=== PATIENT | female | born 1950 | race Caucasian/White ===

== ENCOUNTER 2018-08-10 14:31 | Inpatient (IN) ==
--- NOTE | 2018-08-10 15:19 | EKG Report ---
Test Performed on : 08/10/2018 2:52:06 PM Test Reason : WEAKNESS Blood Pressure : / mmHG Vent. Rate : 060 BPM Atrial Rate : 060 BPM P-R Int : 272 ms QRS Dur : 186 ms QT Int : 494 ms P-R-T Axes : 066 -47 082 degrees QTc Int : 494 ms Sinus rhythm. with 1st degree AV block. Right bundle branch block Left anterior fascicular block Bifascicular block Left ventricular hypertrophy with repolarization abnormality Abnormal ECG When compared with ECG of 31-DEC-2017 06:57, MO interval has increased QRS duration has increased Unconfirmed Result
[2018-08-10 15:53] LABS: BASO# 0.06 X1000 (0.0-0.2); BASO% 0.8 % (0.0-0.8); HEMATOCRIT 39.1 % (37.0-47.0); HEMOGLOBIN 12.6 g/dL (12.0-16.0); LYMPH# 1.12 X1000 (1.2-3.4); LYMPH% 14.2 % (20.5-51.1); MCH 27.8 PG (27-31); MCHC 32.2 g/dL (33-37); MCV 86.1 FL (81-99); MONO% 10.1 % (1.7-9.3); MPV 12.7 FL (7.4-10.4); NEUT# 5.93 X1000 (1.4-6.5); NEUT% 74.9 % (42.2-75.2); PLT 99 X1000 (130-400); RBC 4.54 XMIL (4.2-5.4); RDW 18.9 % (11.5-14.5); WBC 7.91 X1000 (4.8-10.8)
[2018-08-10] MEDS ORDERED: LASIX IV ONE ×2 (16:04→18:06)
[2018-08-10 16:15] LABS: ALB/GLOB RATIO 1.4; ALBUMIN 3.7 g/dL (3.5-5.0); CALCIUM 10.1 mg/dL (8.8-10.2); CREATININE 4.6 mg/dL (0.5-0.9); POTASSIUM 3.5 mmol/L (3.5-5.1); TOTAL BILIRUBIN 0.96 mg/dL (0.20-1.00); TOTAL PROTEIN 6.4 g/dL (6.3-8.3)
[2018-08-10 16:50] LABS: URINE SOURCE CATH
[2018-08-10 17:02] LABS: BILIRUBIN URINE NEGATIVE (NEGATIVE); BLOOD URINE NEGATIVE (NEGATIVE); COLOR YELLOW; GLUCOSE URINE NEGATIVE (NEGATIVE); KETONE URINE NEGATIVE (NEGATIVE); LEUKOCYTES URINE NEGATIVE (NEGATIVE); NITRITE URINE NEGATIVE (NEGATIVE); PROTEIN URINE TRACE mg/dL (NEGATIVE); SP GRAVITY URINE 1.007; TURBIDITY URINE CLEAR (CLEAR); UROBILINOGEN URINE NORMAL (NORMAL)
[2018-08-10 17:03] LABS: UR EPITHELIAL CELLS <10 /HPF (<10); URINE BACTERIA NEGATIVE /HPF; URINE RBC <10 /HPF (<10); URINE WBC <10 /HPF (<10)
--- NOTE | 2018-08-10 17:08 | Diag Imaging Result Doc PS360 ---
EXAM: CHEST-2 VIEWS HISTORY: CHF TECHNIQUE: Chest two views COMPARISON: 01/01/2018 FINDINGS: The lungs are hyperexpanded. The heart is enlarged. There is a small to moderate-sized left pleural effusion with a tiny right pleural effusion. There is basilar atelectasis. Minimal central vascular prominence. IMPRESSION: 1.Emphysema 2.Cardiomegaly with small pleural effusions and basilar atelectasis Electronically signed by Desean Kimble 08/10/2018 5:06 PM
--- NOTE | 2018-08-10 18:13 | PROVIDER DOCUMENTATION ---
This chart was entered by Kamilah Tierney Scribe, acting as scribe for Nico Church MD. HPI-General Adult - General Chief Complaint: General Adult Stated Complaint: FLUID BUILDUP Time Seen by Provider: 08/10/18 14:49 Source: patient, family (pt ) Allergies/Adverse Reactions: Patient Allergies Allergy/AdvReac Type Severity Reaction Status Date / Time No Known Allergies Allergy Verified 12/29/17 19:59 Home Medications: Home Medication List Medication Instructions Recorded Confirmed Last Taken Type Aspirin [Lo-Dose Aspirin EC] 81 mg PO DAILY 12/29/17 03/30/18 12/29/17 History Hydralazine [Apresoline] 50 mg PO BID 12/29/17 03/30/18 03/30/18 History Hydroxychloroquine Sulfate 200 mg PO BID 12/29/17 03/30/18 12/29/17 16:00 History [Plaquenil] Temazepam 15 mg PO HS 12/29/17 03/30/18 1 Day Ago History ~03/29/18 Cholecalciferol (Vitamin D3) 1,000 units PO DAILY 03/30/18 03/30/18 03/30/18 History [Vitamin D3] Esomeprazole Magnesium [Nexium 1 cap PO DAILY 03/30/18 03/30/18 Unknown History 24Hr] Fluconazole [Diflucan] 1 tab PO DAILY 03/30/18 03/30/18 03/30/18 History - History of Present Illness -Gen Adult Nature of Presenting Problems: 68 yof hx of renal disease and htn presents with cc of no appetite and BLE swelling x 3 weeks. Pt at bedside reports pt got sick 3 weeks ago with a virus and had poor appetite and pt now has not regained it back but also started having BLE edema. States is on 40mg lasix daily. Denies cough, sob,n,v, d. Review of Systems - Adult - REVIEW OF SYSTEMS - ADULT Constitutional: reports: weight loss (1 year ago weighed 150lbs, today weighs 117lbs.). denies: chills, fever, fatique Eyes: reports: no symptoms reported Ears, Nose, Mouth & Throat: denies: ear pain, sinus problem, throat pain Cardiovascular: reports: edema. denies: irregular heart rate, orthopnea, syncope Respiratory: denies: cough, shortness of breath, wheezing Gastrointestinal: reports: poor appetite. denies: abdominal pain, hematemesis, diarrhea, difficulty swallowing, frequent heartburn, nausea, rectal bleeding, vomiting Genitourinary: reports: no symptoms reported Musculoskeletal: reports: other (BLE edema). denies: frequent leg cramps, joint pain, joint swelling, muscle aches Integumentary: denies: hives, mole changes, nail changes Neurological: reports: no symptoms reported Psychiatric: reports: no symptoms reported Endocrine: reports: no symptoms reported Hematologic/Lymphatic: reports: no symptoms reported Allergic/Immunologic: reports: no symptoms reported All Other Systems: Reviewed and Negative Past History - Adult - PAST MEDICAL HISTORY-ADULT Review of Records: reports: Nursing Assessment Review, Medications Reviewed Major Childhood Illnesses: reports: denies history Cardiovascular: reports: HTN Respiratory: reports: denies history Gastrointestinal: reports: GERD Obstetrical/Gynecological: reports: denies history Genitourinary: reports: kidney disease Musculoskeletal: reports: arthritis (Rheumatoid) Neurological: reports: denies history Psychiatric: reports: denies history Endocrine/Immune: reports: denies history Other Conditions: reports: denies history - IMMUNIZATION STATUS Childhood Immunizations: See Nurse Assessment Flu Vaccine: See Nurse Assessment - FAMILY HISTORY Family History: reviewed, not pertinent - SOCIAL HISTORY Smoking: non-smoker Substance Use: none/never Physical Exam-General - PHYSICAL EXAM-ADULT Initial Vital Signs Reviewed: Yes - CONSTITUTIONAL General Appearance: alert, no apparent distress. negative: appears well - EYES Eyes: PERRL/EOMI - HEAD, EARS, NOSE, MOUTH & THROAT HENMT: moist mucous membranes - NECK Neck: non-tender, full range of motion, supple, normal inspection - RESPIRATORY Respiratory: chest non-tender, lungs clear, normal breath sounds, no pleuratic chest pain, no respiratory distress, no accessory muscle use - CARDIOVASCULAR Cardiovascular: regular rate, rhythm - GASTROINTESTINAL (ABDOMEN) Abdominal Exam: non tender, soft, no organomegaly - LYMPHATIC Lymphatic: no adenopathy - MUSCULOSKELETAL Back Exam: normal inspection, no CVA tenderness, no vertebral tenderness Extremity: normal range of motion, non-tender, pedal edema (BLE 3+ edema to knees) - SKIN Integumentary: normal color, normal turgor, warm/dry - NEUROLOGIC Neurologic: grossly normal - PSYCHIATRIC Psych/Mental Status: normal mood/affect, normal thought content, normal thought process, oriented x 3 Progress - PLAN OF CARE/RESULTS Progress/Plan/Lab Results: Vital Signs - 8 hr 08/10/18 14:43 Temperature 97.6 F Pulse Rate 61 Respiratory Rate 18 Blood Pressure 93/76 O2 Sat by Pulse Oximetry 100 Orders Category Date Time Status CBC WITH ELECTRONIC DIFF [HEME] Stat Lab 08/10/18 14:45 Uncollected CMP [COMPREHENSIVE METABOLIC PANEL] [CHEM] Stat Lab 08/10/18 14:45 Uncollected EKG [EKG] Stat Ther 08/10/18 14:45 Ordered A/P: pt admitted for HATTIE and fluid overload, pleural effusion, vitals stable, Dr Camacho will se in am. Result Diagrams: 08/10/18 15:28 08/10/18 15:28 - EKG 1 Time of EKG reading by physician:: 14:52 EKG Read and Signed by:: Nico Church EKG Interpretation (*Must complete 3 of following elements*): Abnormal Rate: 60 Rhythm: sinus with 1st deg block [place]: normal QRS: RBB, LVH (with repolarization abnormality), other (LAFB) - CONSULTS/PCP/HOSPITALIST Notification #1 *Consult/PCP/Hospitalist*: Dr Camacho Time Discussed: 18:00 (will see in hospital) Consult Disposition: Admit #2 Consult: jose MANUEL for Dr rodas Time Discussed: 18:11 Consult Disposition: Admit Departure - Departure Date of Disposition Decision: 08/10/18 Time of Disposition Decision: 18:12 DIAGNOSIS: HATITE (acute kidney injury), Edema extremities Disposition: ADMITTED INPATIENT 09 Certified Medical Emergency: Emergent Condition: Stable Additional Freetext Instructions: We have examined and treated you today on an emergency basis only. This was not a substitute for, or an effort to provide, complete medical care. In most cases , you must let your doctor check you again. Tell your doctor about any new or lasting problems. We cannot recognize and treat all injuries or illnesses in one Emergency Department visit. If you had special tests, such as X-rays or CT scans, will be reviewed by radiologist and will call you if there are any new suggestions Follow up with primary care provider in 1 to 2 days if no improvement. If you do not have a primary care provider, you need to choose one as soon as possible. Take medicines as prescribed. Monitor for any side effects or adverse events from medications. If any side effect, adverse event or rash develops, or if you suspect any other adverse reaction to the medication, then discontinue the medication immediately and contact clinic /PCP or go to the nearest ER. Narcotic meds / sedative meds instruction - patent advised not to drive, operate any machinery or go into water after taking meds as it may impair mental ability to react to the situation in an appropriate manner. Continue other current medicines. Follow up with PCP within 24-48 hours, or sooner if symptoms worsen or fail to improve. Patient / guardian verbalizes understanding of treatment plan, medication, and side effects and agrees with treatment plan. Patient leaves ER in stable condition and ambulatory state. Return to ER as needed. Discharge instructions reviewed verbally and given to patient in written form. Follow up with primary care provider. Referrals and Follow-Ups: Danielito Payne DO [Primary Care Provider] - - Critical Care Note This patient required my direct & personal management of CC.: No Attestation - Physician/ ANTONY Attestation Patient care was provided by Advanced Practice Provider:: No The physician spent face to face time with patient:: Yes Advanced Practice Provider documentation review:: Supervising physician onsite and consulted in the evaluation and care of this patient. The physician did have a face to face encounter with the patient. This chart was documented by the indicated scribe, (Kamilah Tierney Scribe) and accurately reflects the services I performed and decisions made by me, Nico Church MD, as attested by the provider's signature.
[2018-08-10 19:35] LABS: INR 1.01; PROTIME 14.1 Seconds (11.0-16.0)
--- NOTE | 2018-08-10 20:02 | HISTORY AND PHYSICAL ---
PRIMARY CARE PHYSICIAN: Dr. Daneilito Payne. ARC AND GAS WELDER: Dr. Alvarez. CHIEF COMPLAINT: Lower extremity edema. HISTORY OF PRESENT ILLNESS: Mrs. Aaron is a 68-year-old female with a history of CKD stage 4, followed by Dr. Alvarez, who comes in today with chronic lower extremity edema. This has been worsening over the past few days and weeks. She denies any chest pain or shortness of breath. She does report minimal urination but no burning on urination and no hematuria. She is also complaining of significant weakness. She becomes weak and tired just by getting up and walking to the bathroom. She came to the ER for evaluation. She had labs done and her creatinine has climbed to 4.6, which has essentially doubled since her last visit on 2017. Chest x- ray shows some cardiomegaly with small pleural effusions and basilar atelectasis and emphysematous changes, but no acute infiltrates. She denies any cough or sputum expectoration. No overt abdominal pain. No diarrhea. She has been checking her blood pressure at home. She does not get overtly hypotensive. She states the lowest it gets is around 110 systolic. Other significant laboratory data on initial evaluation shows some mild thrombocytopenia, which appears to be chronic. She also has some transaminitis. She is going to be admitted for further treatment and evaluation. PAST MEDICAL HISTORY: 1. ESBL UTI. 2. CKD 4. 3. Hypertension. 4. Rheumatoid arthritis. 5. Gastric ulcers. 6. Anemia of chronic disease. 7. Secondary hyperparathyroidism. SURGICAL HISTORY: She has had an appendectomy, benign breast tumor excision, dialysis port insertion and removal. SOCIAL HISTORY: No tobacco, alcohol, or drug use. She is . is at the bedside. REVIEW OF SYSTEMS: A 14-point review of systems was obtained and found to be negative with the exception of the HPI. ALLERGIES: No known drug allergies. HOME MEDICATIONS: Yet to be compiled. PHYSICAL EXAM: VITAL SIGNS: Blood pressure 100/67, heart rate 72, respiratory rate is 15 and O2 saturation is 98% on room air. Temperature is 97.6. GENERAL: This is an elderly, frail, disheveled appearing, 68-year-old female, lying in hospital bed in no acute distress. NEUROLOGICAL: Awake, alert, and oriented. Follows commands. No focal deficits. HEENT: Normocephalic, atraumatic. Pupils are equal, round and reactive to light. Oral mucosa is a bit dry. Trachea is midline. There is significant JVD noted at 45 degrees. CHEST: Clear to auscultation bilaterally. Diminished at the bases. CV: Regular rate and rhythm. S1, S2 is noted. No murmurs, gallops, or rubs appreciated. GI: Soft. Nondistended, nontender. Bowel sounds are active. EXTREMITIES: 2+ pitting edema bilaterally. Pulses are diminished 1+. DIAGNOSTIC DATA: Chest x-ray shows small to moderate size left pleural effusion with a tiny right pleural effusion. There is basilar atelectasis and minimal central prominence. EKG shows sinus bradycardia with a right bundle branch block. There is also a left anterior fascicular block. WBC 7.91, hemoglobin 12.6, hematocrit 39.1, platelet count 99. Sodium 136, potassium 3.5, chloride 91, CO2 26, anion gap 19, BUN 95, creatinine 4.6, glucose 84, calcium 10.1. AST 80 and ALT 93. Alkaline phosphatase 98. UA is negative; trace of protein. ASSESSMENT AND PLAN: 1. Fluid volume overload with acute on chronic renal failure: Currently, there is no discernible cause for her acute worsening renal failure. She is slightly hypotensive here but per her report, she does not sustain hypotension at home. We will keep a close eye on her BP and make any necessary adjustments. She has not started any new medications and she is not having any obstructive uropathy symptoms, however, we do not have imaging of the urinary system as of yet. We have ordered abd US and urine electrolytes. She had an echo done 7 months ago which did not show any major dysfunction, but she does have evidence of cardiomegaly on CXR, so we'll recheck an echo to rule out cardiorenal syndrome. She also has a h/o RA so we'll send off for ANCA and complement factors to r/o autoimmune nephropathy. Nephrology has also been consulted for further evaluation and management. 2. Elevated transaminases: No abdominal pain, nausea or vomiting. We have ordered an abdominal ultrasound to evaluate the liver and the portal system. She does have thrombocytopenia and mild transaminitis which may indicate some type of chronic liver issue, possibly congestive hepatopathy secondary to the kidneys or possibly congestive heart failure. She does not drink alcohol and she denies illicit drug use. We will check a hepatitis panel and abdominal ultrasound and monitor daily liver functions. 3. Rheumatoid arthritis: Aware 4. Hypertension: She is slightly hypotensive. We will monitor this closely. Hold her antihypertensives, at least for now. 5. Deep venous thrombosis prophylaxis with sequential compressive devices given the thrombocytopenia. Further recommendations to follow. Dictated by KALEB Angel for Michel Jang MD 68 year old female with history of CKD presenting with lower extremity swelling with worsening renal function. Serum cr 4.6 with stable vital signs. I agree with the assessment and plan of the BILLBOARD POSTER HELPER. Dr. Jang. cc: KALEB Angel MD [facility]
[2018-08-10 20:36] LABS: IRON SATURATION 19 %; TIBC 196 ug/dL; TOTAL IRON 37 ug/dL (49-151); UNBOUND IRON 159 ug/dL (112-346)
[2018-08-10 20:46] LABS: FERRITIN 607 ng/mL (13-150)
[2018-08-10 21:15] LABS: UR CREAT RANDOM 80.4 mg/dL (11-20); UR PROT RANDOM 10.7 mg/dL
[2018-08-11 06:51] LABS: HEMATOCRIT 36.1 % (37.0-47.0); HEMOGLOBIN 11.8 g/dL (12.0-16.0); MCH 28.2 PG (27-31); MCHC 32.7 g/dL (33-37); MCV 86.2 FL (81-99); MPV 12.8 FL (7.4-10.4); RBC 4.19 XMIL (4.2-5.4); RDW 18.7 % (11.5-14.5); WBC 7.86 X1000 (4.8-10.8)
[2018-08-11] MEDS: PRILOSEC PO SCH (07:03)
[2018-08-11 07:13] LABS: ALB/GLOB RATIO 1.4; ALBUMIN 3.2 g/dL (3.5-5.0); CALCIUM 9.7 mg/dL (8.8-10.2); CREATININE 4.5 mg/dL (0.5-0.9); POTASSIUM 3.5 mmol/L (3.5-5.1); TOTAL BILIRUBIN 0.75 mg/dL (0.20-1.00); TOTAL PROTEIN 5.5 g/dL (6.3-8.3)
--- NOTE | 2018-08-11 08:21 | Diag Imaging Result Doc PS360 ---
EXAM: US ABDOMEN-COMPLETE 08/11/2018 HISTORY: víctor on ckd, elevated LFTs TECHNIQUE: Abdominal ultrasound COMMENT: The aorta and inferior vena cava are normal in appearance where there are visible. There are bilateral pleural effusions. There are small stones layering dependently in the gallbladder. There is no evidence of para cholecystic fluid or sonographic Roajs sign. The gallbladder carrasco are somewhat thickened in appearance. The pancreatic head is unremarkable the remainder is not well seen. The liver is slightly heterogeneous in appearance. There is no evidence of biliary dilatation the common bile duct measuring less than 3 mm. The spleen is not enlarged. The left kidney is considerably atrophic measuring only 4.6 cm in greatest dimension. The right kidney is hyperechoic and contains a 5 cm cyst in the upper pole. These findings were also present on the previous renal ultrasound of 12/30/2017. IMPRESSION: 1. Medical renal disease. 2. Cholelithiasis without evidence of acute cholecystitis. 3. Mild hepatic steatosis. 4. Bilateral pleural effusions. Electronically signed by Jose Crowley 08/11/2018 8:19 AM
[2018-08-11] MEDS: ASPIRIN EC PO SCH (09:31)
--- NOTE | 2018-08-11 11:42 | CONSULTATION ---
DATE OF CONSULTATION: 08/11/2018 IMPRESSION: 1. Congestive heart failure, multifactorial, in setting of acute renal failure. 2. Acute on chronic renal failure. 3. Cardiomyopathy, evident by echocardiography with decreased left ventricular ejection fraction to 35 to 40 percent with left ventricular hypertrophy, compared to echocardiography 8 months ago. 4. Hypertension. Actually current blood pressure is low. 5. Rheumatoid arthritis. 6. Declining memory apparent. RECOMMENDATIONS: 1. Follow up formal echocardiogram report. 2. Screen for vascular disease. I would obtain renal artery Doppler for diagnostic purposes as well as carotid Dopplers looking for subclavian steal. 3. I would check blood pressure in both arms and thigh blood pressure. 4. Diuresis per Nephrology Service given acute renal failure. HISTORY: This 68-year-old white female with past history of chronic kidney disease, hypertension and rheumatoid arthritis was admitted with several weeks of malaise and anorexia. She has also had diffuse weakness. She denies shortness of breath, chest pain or orthopnea. She was brought to the emergency room for evaluation and was found to have acute renal failure with creatinine 4.6. She manifested clinical evidence of congestive heart failure, mostly with central venous pressure elevation, pleural effusions, and edema. Blood pressure has been on the low side. Cardiology is consulted to assist with evaluation. She seems to have some decline in memory. She has history of previous heavy smoking in the past, but discontinued this seven years ago. She is not known to have coronary disease and has not had angina. She denies use of nonsteroidal anti- inflammatories. She has had weight loss over the last 6 months. PAST MEDICAL HISTORY: 1. Chronic kidney disease. 2. Hypertension. 3. Rheumatoid arthritis. 4. Gastric ulcers. 5. Anemia of chronic disease. 6. Secondary hyperparathyroidism. PAST SURGICAL HISTORY: 1. Appendectomy. 2. Removal of benign breast tumor. 3. Transient dialysis port insertion for temporary dialysis in the setting of acute noncardiac illness. ALLERGIES: She has no known drug allergies. MEDICATIONS PRIOR TO ADMISSION: As listed. SOCIAL HISTORY: She is and lives with her . She previously smoked 2 packs of cigarettes per day but discontinued this six or 7 years ago. She does not use alcohol. FAMILY HISTORY: Negative for premature coronary disease. REVIEW OF SYSTEMS: Pulmonary: Negative. Gastrointestinal: Noteworthy for anorexia, but otherwise negative. Constitutional: Noteworthy for fatigue, weakness and weight loss. Remainder of review of systems negative/noncontributory with 14 total systems reviewed. PHYSICAL EXAMINATION: General: This is a chronically ill-appearing, older white female in no distress on room air. Vital signs: Blood pressure 90/50 in left arm. Heart rate 57 and regular. Oxygen saturation 100% on room air. Weight 125 pounds. HEENT: Extraocular movements appear intact. Mucous membranes are moist. Neck: Supple. Jugular distention is demonstrated suggesting elevated central venous pressure. Carotid bruits cannot be appreciated. Chest: Clear to auscultation. Cardiac: Reveals a regular rate and rhythm without appreciable murmur or gallop. Abdomen: Soft, nontender. There are no abdominal bruits. Extremities: Demonstrate mild to moderate pretibial edema. Neurologic: Reveals her to be alert and responsive. She is oriented to person, place and July 2018. She is not correct on the date. Speech is fluent. She moves all 4 extremities equally well. Skin: Warm and dry. Psychiatric: Reveals her affect to be somewhat flat. LABORATORY DATA/DIAGNOSTICS: White blood cell count of 7.86, hematocrit 36.1, hemoglobin 11.8, platelet count 87,000. Sodium 136, potassium 3.5, chloride 93, carbon dioxide 25, BUN 97, creatinine 4.5, glucose 86, albumin 3.2. TSH 2.25. EKG demonstrates sinus bradycardia, first- degree AV block, right bundle branch block and left anterior fascicular block. Portable chest x- ray demonstrates cardiomegaly and left pleural effusion. cc: Moncho Elizabeth MD
[2018-08-11 12:27] LABS: HEPATITIS PROFILE ACUTE SEE COMMENTS
--- NOTE | 2018-08-11 13:29 | Diag Imaging Result Doc PS360 ---
EXAM: US DUPLEX RENAL ARTY/VEIN LMTD HISTORY: evaluate for renal artery stenosis TECHNIQUE: Renal arterial Doppler ultrasound COMPARISON: None. FINDINGS: Suboptimal exam. The right kidney measures 3.7 x 8.5 cm. Mild increased renal echotexture. No stone or hydronephrosis. There is a 5 cm cyst in the mid kidney. Minimal arterial flow demonstrated. The left kidney measures only 2.6 x 4.6 cm. Increased renal echotexture. No stone or hydronephrosis. Very little flow demonstrated. IMPRESSION: Small kidneys with increased renal echotexture consistent with medical renal disease. Very little flow demonstrated. Electronically signed by Desean Kimble 08/11/2018 1:27 PM
--- NOTE | 2018-08-11 15:46 | ECHO REPORT ---
ORDER DATE: 08/10/2018 INDICATION: Volume overload. Cardiomegaly. Hypertension. FINDINGS: 1. The right atrium is mildly enlarged at 4.2 cm. 2. Moderate tricuspid regurgitation. The RV systolic pressure is estimated at 23 mmHg, but this is a somewhat difficult measurement. 3. Right ventricle appears dilated with moderate reduction in RV systolic function. 4. Trace pulmonic insufficiency. 5. Suggestion of mild left atrial enlargement with a dimension of 4.5 cm. 6. No mitral valve prolapse. Mild mitral regurgitation. 7. The left ventricle appears to be normal in size with an end-diastolic dimension of 3.6. There is moderate left ventricular hypertrophy with a posterior and interventricular septal wall thickness 1.6 and 1.5 cm respectively. Severe reduction in LV systolic function. The estimated EF is 25% on this study. Definity echo contrast was used on this study. Notably, there were several off axis views. 8. Aortic valve appears to open reasonably well. There is some calcification noted primarily the left coronary cusp. Trace insufficiency. No clear evidence of stenosis. 9. Aorta appears normal in visualized segments. 10. No pericardial effusion seen. cc: MD Royce Rasmussen CRNP
--- NOTE | 2018-08-11 20:26 | NEPHROLOGY CONSULTATION ---
DATE: 08/11/2018 REASON FOR ADMISSION: Increased work of breathing with fluid volume overload and weakness. REASON FOR CONSULT: Acute kidney injury on CKD stage 4. CONSULTING PHYSICIAN: Dr. Jang. HISTORY OF PRESENT ILLNESS: Ms Aaron is a 68-year-old white female who is brought to our office yesterday without an appointment for work-in secondary to her complaining of increased swelling, increased work of breathing and increased lethargy. He had noted that she had a upper respiratory cold approximately 3 weeks ago he stated lasted over a week and she has not been well ever since. She has known CKD stage 4 to our Outpatient Clinic with a baseline creatinine of 2.28. Subsequently she presented to our office. She was found to have an irregular heart pattern. Her urine output she states has been decreased though she has no dysuria or hematuria or burning on urination. Her blood pressure in the office was 106 over the 50 range. Heart rate was found to be anywhere from 58 to 78. She was very, very weak. We did not have any current labs. Lungs are fairly clear on auscultation. Due to her deteriorated state, we had requested to patient's family to take her to [facility] Emergency Department. We did notify her primary care physician, Dr. Danielito Payne of her condition. In the ER she was evaluated. It is noted that her creatinine had climbed to 4.6. Chest x-ray showed cardiomegaly with small pleural effusions and bibasilar atelectasis with emphysematous changes, no acute infiltrates. She denies any severe cough. No overt abdominal pain. No fever or chills, decreased appetite with no nausea, vomiting or diarrhea, noted that her blood pressure at home had been overtly hypotensive less than 100. Due to these findings, she was admitted to the hospitalist service and further evaluation was pending. The patient currently is receiving an echocardiogram. We have consulted Cardiology. PAST MEDICAL HISTORY: CKD stage 4 with acute kidney injury, ESBL with a UTI in the past, hypertension, rheumatoid arthritis, gastric ulcers, anemia of chronic disease, secondary hyperparathyroidism and osteodystrophy of chronic disease noted also with swelling. Patient states that she may have had atrial fibrillation in the past. SURGICAL HISTORY: History of an appendectomy, benign breast tumor excision, dialysis previously performed with a port removal. SOCIAL HISTORY: She is . She lives with her spouse. Denies any tobacco , alcohol or illicit drug use. ALLERGIES: Listed as no known drug allergies. HOME MEDICATIONS: Have yet to be reconciled. REVIEW OF SYSTEMS: Times 10 with pertinent positives listed above in the HPI. VITAL SIGNS: Today 97.6 temperature, blood pressure 90/51, heart rate 56, respirations 18. She is currently on room air. Last recorded saturation is 94%, she has had 0 recorded in, she has had 250 mL out only to her Jaimes catheter after receiving 2 doses of Lasix. LAB: Sodium 136, potassium 3.5, chloride 93, CO2 25, BUN 97, creatinine 4.5, glucose 86, anion gap is 18, calcium 9.7, magnesium 2, white count 7.86, hemoglobin 11.8, hematocrit 36.1 with a platelet count of 87,000. PHYSICAL EXAM: This is a 68-year-old white female who appears older than her stated age. Appears in moderate distress though she appears significantly weak.HEENT: Normocephalic , atraumatic. Conjunctiva is pale pink. She has KENDAL. Mucous membranes are dry. Neck: Supple. Trachea midline. She does have positive JVD. Cardiovascular: She is regular rate and rhythm. Appears sinus on her telemetry. Her chest is clear to auscultation bilateral. Abdomen : Soft, nontender. Positive bowel sounds. Genitourinary: Not inspected. Patient has Jaimes catheter in place. Extremities: Lower. Patient continues with 2 to 3+ lower extremity edema from the knees down. Neurological: She is alert and oriented to person and to place. ASSESSMENT AND PLAN: 1. Acute kidney injury on chronic kidney disease stage 4. This appears to be multifactorial. Patient has not been eating well. She has continued to take her home medications including her Lasix. She has been hypotensive. She had an irregular heart pattern in our office and she appears to be in fluid volume overload with possible congestive heart failure. We will hold any further Lasix at this time. We will check urine electrolytes, reevaluate the patient's labs in the a.m. We will request a strict I and O. 2. Possible fluid volume overload. We will consult Dr. Elizabeth for evaluation. Patient is currently receiving an echocardiogram. She has received 80 mg of Lasix yesterday in the emergency room. We will continue to monitor and follow and evaluate. Appreciate their service and input. 3. Electrolytes and acid-base balance. These are fairly stable. 4. Anemia. This is close to target. 5. Weakness. This maybe contributed to #1 and #2. Like to thank you for allowing us to follow with this patient. Dictated by KALEB Rose for Hossein Alvarez MD Face to face encounter, data reviewed, discussed with Kathy Leiva on 08/11/18. I agree with the above assessment and plan of care. cc: KALEB Rose MD [facility]
[2018-08-11] MEDS ORDERED: APRESOLINE PO SCH (21:00)
[2018-08-11] MEDS ORDERED: ALBUMIN 25% IV ONE (21:57)
[2018-08-11] MEDS: RESTORIL PO SCH (23:01)
--- NOTE | 2018-08-12 02:25 | PROGRESS NOTE ---
DATE: 08/11/2018 SUBJECTIVE: The patient has no major complaints. She looks well. She is sitting up eating dinner. OBJECTIVE: Vital Signs: Blood pressure 97/69, heart rate 124, respiratory rate 16, temperature 98.2 degrees, oxygen saturation 100% on room air. Cardiovascular: Regular rate and rhythm. Pulmonary: Bilateral breath sounds. Clear to auscultation. Gastrointestinal: Soft, nontender, and nondistended. Bowel sounds are positive. LABORATORY DATA: White count 7, H and H 11 and 36, platelets of 87,000, sedimentation rate is only 2. BUN and creatinine are 97 and 4.5, which is essentially unchanged from yesterday. AST and ALT are 65 and 78. PROBLEM LIST: 1. Acute renal failure in the stage of a chronic renal failure stage 4. The patient affectively though based on her data shows that she has a urine sodium less than 20, it is actually 11 suggesting prerenal azotemia but this is probably a function of poor perfusion and it is probably less than 1%, which would suggest prerenal azotemia but again it is probably intravascular depletion in the setting of diuretic. The patient is being followed by [facility], they are both deciding about diuresis, she may end up needing hemodialysis and they are following. 2. New onset congestive heart failure with an EF of 25% suggesting that she has new onset CHF. Cardiology is following. No Nino inhibition, beta ann may be an option but she has been bradycardic and hypotensive, so we are holding off. Now she is tachycardic and will be difficult in this setting, but they will continue to follow and decide about ischemic workup. Inflammatory workup is in process, I would say with a negative sedimentation rate that it is unlikely. She does have rheumatoid arthritis, she is on hydroxychloroquine. 3. Elevated liver enzymes. She has hepatic steatosis mild, in any case we are going to follow closely. 4. Disposition. Is technically difficult but they are going to initiate dialysis and follow closely. cc: Soren Rodriguez MD MTDD
[2018-08-12] MEDS: PRILOSEC PO SCH ×2 (05:29→06:06)
[2018-08-12 05:48] LABS: HEMATOCRIT 33.2 % (37.0-47.0); HEMOGLOBIN 10.9 g/dL (12.0-16.0); MCH 28.5 PG (27-31); MCHC 32.8 g/dL (33-37); MCV 86.9 FL (81-99); MPV 13.5 FL (7.4-10.4); RBC 3.82 XMIL (4.2-5.4); RDW 18.7 % (11.5-14.5)
[2018-08-12 06:49] LABS: ALB/GLOB RATIO 1.6; ALBUMIN 3.6 g/dL (3.5-5.0); CALCIUM 9.4 mg/dL (8.8-10.2); CREATININE 4.1 mg/dL (0.5-0.9); POTASSIUM 3.5 mmol/L (3.5-5.1); TOTAL BILIRUBIN 0.91 mg/dL (0.20-1.00); TOTAL PROTEIN 5.8 g/dL (6.3-8.3)
--- NOTE | 2018-08-12 07:06 | EKG Report ---
Test Performed on : 08/11/2018 7:04:54 PM Test Reason : Tachy Arrythmia Blood Pressure : / mmHG Vent. Rate : 124 BPM Atrial Rate : 125 BPM P-R Int : 240 ms QRS Dur : 208 ms QT Int : 372 ms P-R-T Axes : 000 -43 101 degrees QTc Int : 534 ms Sinus rhythm. with 1st degree AV block. vs. junctional tachycardia Left axis deviation Right bundle branch block Left ventricular hypertrophy with repolarization abnormality Abnormal ECG When compared with ECG of 10-AUG-2018 14:52, (Unconfirmed) P waves are difficult to discern Vent. rate has increased BY 64 BPM Confirmed by Humza MUÑIZ, William Molina ([id number]) on 08/12/2018 7:56:32 AM
[2018-08-12] MEDS: ASPIRIN EC PO SCH (08:08)
[2018-08-12] MEDS: NEPHRO-VITE PO SCH (08:08)
--- NOTE | 2018-08-12 08:39 | Carotid Study ---
DATE: 08/11/2018 PROCEDURE: Bilateral carotid duplex. REFERRING PHYSICIAN: DR. Rodriguez. INTERPRETING PHYSICIAN: Dr. Wilfredo Cheema. TECH: [place]. INDICATIONS: Evaluate for subclavian steal. OBSERVED DATA RIGHT LEFT Brachial Blood Pressure Carotid Pulse Bruits: Carotid/Sub DIAGRAM OF ULTRASOUND IMAGING R L RIGHT INT EXT INT EXT LEFT Osman (cm/s) Osman (cm/s) Subclavian 68/0 Subclavian 74/0 CCA Proximal 61/11 CCA Proximal 53/12 CCA Distal 67/14 CCA Distal 63/15 Bulb 58/11 Bulb 57/13 ICA Proximal 48/11 ICA Proximal 68/11 ICA Mid 56/13 ICA Mid 47/13 ICA Distal 58/12 ICA Distal 78/17 ECA 66/8 ECA 85/15 Vertebral 38/0 A Vertebral 53/15 A ICA/CCA Ratio 0.88 ICA/CCA Ratio 1.19 % Stenosis 0-39% % Stenosis 0-39% PHYSICIAN INTERPRETATION: No hemodynamically significant lesion noted. The vertebrals are antegrade bilaterally. cc: MD Latrice Maldonado PA
[2018-08-12] MEDS ORDERED: PLAQUENIL PO SCH (09:00)
--- NOTE | 2018-08-12 09:44 | NEPHROLOGY PROGRESS NOTE ---
DATE: 08/12/2018 DATE AND TIME SEEN: 08/12/2018 at 0730. SUBJECTIVE: Ms. Graves is resting quietly in bed. Her head of the bed is elevated. She currently states that she is weak, but she is feeling just a little bit better. OBJECTIVE: Vital Signs: Temperature 97.7, blood pressure 96/67, heart rate 126 , respirations 17. She is on room air. Last recorded saturation 100%. She has had 180 in. She has had 445 out. LABORATORY DATA: Sodium 138, potassium 3.5, chloride 94, CO2 of 24. BUN 102, creatinine 4.1, glucose 83. Anion gap 20, calcium 9.4, magnesium 2.1, albumin 3.6. White count 7, hemoglobin 10.9, hematocrit 23.2, with a platelet count of 71,000. The patient had a renal ultrasound that was completed indicating marginally small kidneys. The left kidney is measuring 4.6; the right kidney measures 5 cm. PHYSICAL EXAMINATION: This is a 68-year-old white female who is resting quietly in bed. She appears chronically ill though in no acute distress. is at the bedside. Skin is warm and dry. HEENT: Normocephalic, atraumatic. Conjunctivae pale pink. She has KENDAL. Mucous membranes are dry. She has no JVD in the upright position. Cardiovascular: Regular rate and rhythm. She has sinus rhythm on her monitor. Chest is clear to auscultation bilaterally. Equal excursion. Remains on room air. Abdomen is soft, nontender. Positive bowel sounds. Genitourinary: Not inspected. Patient has modest urine out. Extremities: Continues with 1 to 2+ lower extremity edema mostly in her feet and ankles. Neurological: She is alert and oriented x3. ASSESSMENT AND PLAN: 1. Acute kidney [id number] kidney disease, stage 4. The patient has not returned to her historical baseline. She continues in fluid volume overload. It is noted that she has bilateral atrophic kidneys measuring 4 and 5 cm, both left and right. We have had a ryan discussion with the and patient today in regards with need and indications to start dialysis. We have discussed both hemodialysis and peritoneal dialysis today. We have offered for our dialysis nurse to come in and explain both procedures to them. The patient is familiar with hemodialysis in the past, though she had recovered minimally to come off. Due to these findings, it is noted that patient has macular degeneration. Her is her primary caregiver. He would like to talk with his [id number] who lives nearby in regards with assistance in either form of dialysis. We have discussed in regards to getting him some type of a video with a booklet and explanations from our Dialysis nurse. They requested that we attempt this tomorrow. He has given us his phone numbers. We will attempt to call him and set up a time during the hospitalization. 2. Fluid volume overload. Dr. Elizabeth is now monitoring and evaluating. The patient continues with hypotension. She has received Lasix to assist with her fluid volume overload. She was given albumin 25 g yesterday evening x1. We have indicated to the family the difficulties in regards with type of dialysis and her hypotension. They are aware. 3. Electrolytes and acid-base balance. These are fairly stable. 4. Anemia. This is stable. 5. Increased work of breathing and weakness. This continues. I would like to thank you for allowing us to follow with this patient. Dictated by KALEB Rose for Hossein Alvarez MD Face to face encounter, data reviewed, discussed with Yadira Leiva on 08/12/18. I agree with the above assessment and plan of care. cc: KALEB Rose MD MTDD
--- NOTE | 2018-08-12 10:09 | EKG Report ---
Test Performed on : 08/12/2018 10:04:04 AM Test Reason : Confirm Rhythm Blood Pressure : / mmHG Vent. Rate : 134 BPM Atrial Rate : 043 BPM P-R Int : 000 ms QRS Dur : 206 ms QT Int : 412 ms P-R-T Axes : 000 -32 128 degrees QTc Int : 615 ms Wide QRS tachycardia. vs. sinus tach Left axis deviation Right bundle branch block Left ventricular hypertrophy with repolarization abnormality Abnormal ECG When compared with ECG of 11-AUG-2018 19:04, P waves are mpre a[[arent, consider pre-excitation, possible delta waves Confirmed by Humza MUÑIZ, William Molina ([id number]) on 08/12/2018 1:07:57 PM
[2018-08-12 12:09] LABS: ANTINEUTROPHIL CYTOPLASMIC AB SEE COMMENTS
[2018-08-12] MEDS: RESTORIL PO SCH (21:52)
--- NOTE | 2018-08-12 23:22 | PROGRESS NOTE ---
DATE: 08/12/2018 INTERVAL HISTORY: The patient with some tachycardia this morning, but appears to be sinus, both on exam, and on the monitor. The patient reports some increased anxiety after being informed that she was going to start dialysis today, but no other new complaints. No other acute events overnight. Respiratory status stable. REVIEW OF SYSTEMS: A 12-point review of systems negative, except as per interval history. LABS: WBC 7, hemoglobin 10.9, hematocrit 33.2, platelets 71,000. Sodium 138, potassium 3.5, chloride 94, bicarb 24, BUN 102, creatinine 4.1, glucose 83, magnesium 2.1, total bilirubin 0.9, AST 56, ALT 69, alkaline phosphatase 80. Total protein 5.8, albumin 3.6. VITALS: T-max 98.2 degrees, pulse 101, respirations 18, blood pressure 92/64, O2 saturation 99% on room air. PHYSICAL EXAMINATION: General: No acute distress. Vitals: As above. HEENT: Normocephalic, atraumatic. Moist mucous membranes. No cervical adenopathy. Cardiovascular: Tachycardic, but regular rhythm. No murmurs, rubs, or gallops. Pulmonary: Largely clear to auscultation bilaterally. No wheezing, rales, or rhonchi. Abdomen: Soft, nontender, nondistended. Bowel sounds positive. Extremities: Peripheral pulses intact. No clubbing or cyanosis. Neurologic: Cranial nerves grossly intact. No focal deficits identified. Psychiatric: Normal mood. Awake, alert, oriented x3. Skin: No new rashes or lesions identified. ASSESSMENT AND PLAN: 1. Acute kidney failure on chronic kidney disease 4, may now be possibly end-stage. Nephrology following and plans on starting dialysis today. We will monitor closely, given low normal blood pressures. Continue monitoring labs. 2. New diagnosis of systolic congestive heart failure. Holding on THEO inhibitor, given kidney failure. Have been holding on beta-ann, given relatively low blood pressure, but given tachycardia over the past day or 2, may consider adding low-dose beta ann. We will see what she is doing after dialysis, as I do not want to drop her blood pressure as they initiate dialysis. Monitor closely. Oxygen saturations stable on room air. Last x-ray without pulmonary edema. The congestive heart failure appears to be relatively compensated. 3. Fatty liver and mild transaminitis. Bilirubin remains within normal limits, and in slight downtrend. No need for acute intervention at this time. 4. Peptic ulcer disease. Continue proton pump inhibitor. No active bleeding during this hospitalization. 5. Anemia of chronic disease. Continue to monitor blood counts. 6. Questionable history of atrial fibrillation. The patient is uncertain if she has ever been diagnosed before. Reportedly had irregular heart beats noted in Nephrology Clinic prior to admission, and has had occasional mild tachycardia here, but no atrial fibrillation noted since presentation. Continue to monitor on telemetry. 7. Deep vein thrombosis prophylaxis with sequential compression devices.
--- NOTE | 2018-08-13 00:25 | PROGRESS NOTE ---
DATE: 08/12/2018 SUBJECTIVE: The patient continues without dyspnea lying flat in bed. There has been no chest pain. She continues on room air. OBJECTIVE: Vital Signs: Blood pressure ranges from 92/64 to 104/62 and seems to be equal in both arms. Heart rate 101 with ECG monitor showing sinus rhythm, oxygen saturation 99% on room air. Neck: There is no significant jugular distention. Chest: Clear to auscultation. Cardiac: Exam reveals a regular rate and rhythm without appreciable gallop. Extremities: Demonstrate 1+ to 2+ pretibial edema in the distal lower extremities and ankles. DIAGNOSTICS: Echocardiography technically difficult but suggests moderate left ventricular hypertrophy and significantly reduced left ventricular ejection fraction. LABORATORY DATA: A white blood cell count of 7.0, hematocrit 33.2, hemoglobin 10.9, platelet count 71,000. Sodium 138, potassium 3.5, chloride 98, carbon dioxide 24, BUN 102, creatinine 4.1, glucose 83, magnesium 2.1, albumin 3.6. Carotid Doppler study shows no significant carotid lesions and vertebral flows are antegrade bilaterally. IMPRESSION: 1. Some tendency for congestive heart failure which is multifactorial in setting of acute renal failure and cardiomyopathy. 2. Acute on chronic renal failure. 3. Cardiomyopathy with left ventricular ejection fraction, per my review probably around 35 to 40 percent with left hypertrophy. 4. Hypertension. Current blood pressure low normal on no antihypertensives medications. 5. Rheumatoid arthritis. RECOMMENDATIONS: 1. Arrange MUGA scan to reassess left ventricular ejection fraction. 2. At present, conservative cardiovascular management appears to be most appropriate given significant cardiomyopathy and acute on chronic renal failure. Her volume status is such that she manifests some signs of mild volume overload, but this does not appear to be a pressing matter nor does to be impairing her renal performance. 3. Agree with plans to consider options for dialysis. I agree that her blood pressure may be a limiting factor for hemodialysis. cc: Moncho Elizabeth MD
[2018-08-13 05:37] LABS: HEMATOCRIT 36.9 % (37.0-47.0); MCH 28.4 PG (27-31); MCHC 32.5 g/dL (33-37); MCV 87.2 FL (81-99); MPV 12.9 FL (7.4-10.4); RBC 4.23 XMIL (4.2-5.4); RDW 19.3 % (11.5-14.5); WBC 9.24 X1000 (4.8-10.8)
[2018-08-13 05:42] LABS: ALB/GLOB RATIO 1.5; ALBUMIN 3.6 g/dL (3.5-5.0); CALCIUM 9.9 mg/dL (8.8-10.2); CREATININE 4.1 mg/dL (0.5-0.9); POTASSIUM 3.8 mmol/L (3.5-5.1); TOTAL BILIRUBIN 0.96 mg/dL (0.20-1.00)
[2018-08-13] MEDS: PRILOSEC PO SCH ×2 (05:56→06:01)
[2018-08-13] MEDS: ASPIRIN EC PO SCH (09:07)
[2018-08-13] MEDS: NEPHRO-VITE PO SCH (09:07)
--- NOTE | 2018-08-13 14:08 | Diag Imaging Result Document ---
PROCEDURE NAME: MUGA (GATED CARDIAC SCAN) - 08/12/2018 SUMMARY: The patient was administered 20.8 mCi of technetium labeled cold PYP, after which gated cardiac images were obtained. Review of these images demonstrated normal left ventricular chamber size with global hypokinesis and calculated left ejection fraction 38%. CONCLUSIONS: MUGA scan demonstrates calculated left ejection fraction 30%. . cc: Moncho Elizabeth MD
--- NOTE | 2018-08-13 14:26 | PROGRESS NOTE ---
DATE: 08/13/2018 OVERNIGHT: No acute events. She remained tachycardic with heart rate 100 to 120 per minute. Her blood pressure was on the lower side as well. SUBJECTIVE: The patient denies any complaints. She denies chest pain, shortness of breath. She denies nausea, vomiting, abdominal pain. We discussed about her high heart rate , low ejection fraction and the need for further cardiac testing to evaluate her for other etiologies contributing to her low ejection fraction. I answered all of her questions. OBJECTIVE: Temperature 97.9, pulse 101 per minute, blood pressure 96/69, saturating 97% on room air. PHYSICAL EXAMINATION: General: She does not appear in any acute distress. Oral Cavity: She has oral thrush for which I am going to order nystatin. Respiratory Examination: Air entry bilaterally equal. No wheeze or rhonchi. No crackles. Cardiovascular: Tachycardic. S1, S2 normal. No murmur, rub, or gallop. She does have jugular venous distention. She also has bilateral lower extremity edema. She has urine catheter in place. Abdomen is soft, nontender. Neurologic: Alert and oriented x3. The patient has perception of light bilateral eyes, but no finger counting. LABORATORY DATA: Suggestive of no leukocytosis, persistent thrombocytopenia, chronic kidney disease stage 5 without hyperkalemia. Her complement level, DALIA screen, and hepatitis panel were negative. Microbiology: No new data report. Chest x-ray on admission had suggested emphysema, cardiomegaly. Abdomen ultrasound had suggested medical renal disease with hepatic steatosis. Carotid Doppler ultrasound did not detect any hemodynamically significant carotid artery stenosis. Aorta renal ultrasound suggests a small kidney. ASSESSMENT AND PLAN: 1. Acute kidney zlxiil-jj-dfrtsro kidney disease, stage 4, now leading to what appears to be chronic kidney disease, stage 5, an end-stage. Nephrology on board. Holding discussion about likely peritoneal dialysis. Will appreciate formal recommendation. 2. New onset acute systolic congestive heart failure. She does have bilateral pedal edema and bilateral mild pleural effusion. Follow up with MUGA scan results. Continue aspirin. Follow up with lipid panel results tomorrow to evaluate for the need for statins. She is normotensive to hypotensive and, so, is not on THEO inhibitors or beta blockers at the moment. After the MUGA scan, I will appreciate Cardiology recommendation about need for further diagnostic investigations. 3. Fatty liver with mild transaminitis, currently in acceptable range. 4. Thrombocytopenia. No need of transfusion at the moment. I will have peripheral blood smear done. This could be related to her fatty liver. Considering her uremia, elevated bilirubin; I will get LDH and haptoglobin. No signs of bleeding at the moment. 5. Anemia of chronic disease. Current in acceptable range. 6. Deep venous thrombosis prophylaxis on sequential compression devices. 7. Tachycardia. Wide complex with right bundle branch block and left anterior fascicular block. She did have long-standing smoking history and emphysema and cardiomegaly as well. Cardiology on board. DISPOSITION: The patient remains inside the hospital while we await further nephrology recommendations and cardiac workup. Plan of care was discussed with the patient and family members at bedside. All of their questions have been answered. cc: Martin Nuno MD MTDD
--- NOTE | 2018-08-13 14:48 | NEPHROLOGY PROGRESS NOTE ---
DATE: 08/13/2018 TIME SEEN: 0850 hours. SUBJECTIVE: Ms. Aaron is resting quietly in bed. She has just come back from having a cardiac scan done. She states that she is in no pain. No increased work of breathing. OBJECTIVE: Vital Signs: Temperature 97.7 degrees, blood pressure 97/72, heart rate 100, respirations 14. She is on room air. Last recorded saturation 95%. She has had 280 in and 175 out. LABS: Sodium is 136, potassium 3.8, chloride is 94, CO2 23. BUN 106, creatinine 4.8, glucose 93, anion gap is 19, calcium is 9.9, albumin is 3.6. The patient has a previous hemoglobin of 12 on the twenty-second. PHYSICAL EXAMINATION: General: This is a 68-year-old white female resting quietly in bed. She appears chronically ill, though no acute distress today. Skin: Warm and dry. HEENT: Normocephalic, atraumatic. Conjunctiva is pale pink. She has KENDAL. Mucous membranes are dry. Neck: Supple. Trachea midline. No evidence of JVD. Cardiovascular: She is regular rate and rhythm without murmur or gallop. Lungs: Clear to auscultation bilaterally. Equal excursion. Abdomen: Soft, nontender. Positive bowel sounds. Genitourinary: Not inspected. Patient has minimal urine out recorded. Extremities: Continues with 1+ to 2+ pitting edema bilaterally. Neurological: She is alert and oriented x3. ASSESSMENT AND PLAN: 1. Acute kidney injury on chronic kidney disease stage IV. The patient remains in fluid volume overload. She continues to be re-evaluated by Cardiology for heart failure. It is noted that she has an approximately 35% ejection fraction on her echocardiogram that was completed yesterday. She remains hypotensive secondary to her acute kidney injury and small bilateral kidneys measuring 4.5 and 4.6. We have indicated to the family that this is minimally adequate for her renal status. We have discussed peritoneal dialysis and hemodialysis. We have offered the nurse to come in and discuss this and show them a video today which is planned for 0930 hours. We have indicated that this will be milder on her heart, and we will re-evaluate plan of action after they have reviewed this information. 2. Fluid volume overload. Cardiology continues to follow. We appreciate their input. Again, possibly preferring possible peritoneal dialysis to assist with her fluid volume overload in the future. 3. Electrolytes and acid-base balance. These are fairly stable. 4. Anemia. This is low, but stable. I would like to thank you for allowing us to follow with this patient. I discussed with them. We will ask Dr. Alejandra to place a PD catheter so we can begin treatment MARVIN. rg Dictated by KALEB Rose for Hossein Alvarez MD Face to face encounter, data reviewed, discussed with Yadira Leiva on 08/13/18. I agree with the above assessment and plan of care. rg cc: KALEB Rose MD [facility]
--- NOTE | 2018-08-13 15:03 | PROGRESS NOTE ---
DATE: 08/13/2018 SUBJECTIVE: The patient continues without dyspnea or chest discomfort on room air. She appears comfortable. OBJECTIVE: Vital Signs: Blood pressure 105/66, heart rate 104 and regular, oxygen saturation 95% on room air. Neck: Jugular venous distention is present suggesting elevated central venous pressure. Chest: Clear to auscultation bilaterally. Cardiac Exam: Reveals a regular rate and rhythm without appreciable murmur or gallop. Extremities: Demonstrate mild lower extremity edema. DIAGNOSTIC STUDIES: MUGA scan demonstrates calculated left ventricular ejection fraction of 38%. LABORATORY DATA: White blood cell count 9.24, hematocrit 36.9, hemoglobin 12.0, platelet count 63,000. Sodium 136, potassium 3.8, chloride 94, carbon dioxide 23, BUN 106, creatinine 4.1, glucose 93. IMPRESSION: 1. Congestive heart failure, predominantly right-sided, which is multifactorial in the setting of acute renal failure and cardiomyopathy. 2. Acute on chronic renal failure. 3. Cardiomyopathy with left ventricular ejection fraction 35 to 40 percent, with associated left ventricular hypertrophy. 4. Hypertensive cardiovascular disease. Current blood pressure low normal on no antihypertensive medications at this time. 5. Rheumatoid arthritis. RECOMMENDATIONS: 1. Agree with plans to arrange long-term dialysis. 2. Add low-dose metoprolol as tolerated. 3. Conservative cardiovascular management overall. cc: Moncho Elizabeth MD
[2018-08-13] MEDS: TOPROL XL PO SCH (15:24)
[2018-08-13] MEDS ORDERED: MYCOSTATIN SUSP PO SCH (17:00)
[2018-08-13] MEDS: RESTORIL PO SCH (22:08)
[2018-08-14 05:45] LABS: CHOLESTEROL 137 mg/dL (0-200); HDL 86 mg/dL (45-65); LDL 36 mg/dL; MAGNESIUM 2.2 mg/dL (1.5-2.7); TRIGLYCERIDES 75 mg/dL (35-135); VLDL 15 mg/dL
[2018-08-14 06:02] LABS: HEMATOCRIT 37.7 % (37.0-47.0); HEMOGLOBIN 12.1 g/dL (12.0-16.0); MCH 28.3 PG (27-31); MCHC 32.1 g/dL (33-37); MCV 88.3 FL (81-99); PLT 58 X1000 (130-400); RBC 4.27 XMIL (4.2-5.4); RDW 19.5 % (11.5-14.5); WBC 9.46 X1000 (4.8-10.8)
[2018-08-14 06:07] LABS: ALB/GLOB RATIO 1.7; ALBUMIN 3.6 g/dL (3.5-5.0); CALCIUM 9.8 mg/dL (8.8-10.2); CREATININE 4.4 mg/dL (0.5-0.9); POTASSIUM 4.2 mmol/L (3.5-5.1); TOTAL BILIRUBIN 1.35 mg/dL (0.20-1.00); TOTAL PROTEIN 5.7 g/dL (6.3-8.3)
[2018-08-14] MEDS: PRILOSEC PO SCH (06:17)
[2018-08-14] MEDS: TOPROL XL PO SCH (09:01)
--- NOTE | 2018-08-14 10:00 | GENERAL SURGERY CONSULTATION ---
DATE: 08/14/2018 REASON FOR CONSULTATION: Peritoneal dialysis catheter placement. REFERRING PHYSICIAN: Hossein Alvarez MD. HISTORY OF PRESENT ILLNESS: This is a 68-year-old female with a past medical history of acute kidney injury after a septic shock episode 6 years ago. She has had subsequent chronic kidney disease since then. Recently over the last 3 weeks, she reportedly had a virus with the main symptoms being very poor appetite and poor oral intake. She presented to the hospital with these complaints as well as leg swelling. She has had minimal urination recently, and she is significantly weak. She was also noted to be hypotensive at home with a systolic pressure less than 100. She was sent to the hospital by Dr. Alvarez for further evaluation. In the hospital, she is found to have worsening kidney disease and uremia with some congestive heart failure. She has reached the point of needing dialysis. The patient and Dr. Alvarez have discussed and prefer to pursue peritoneal dialysis. She did have hemodialysis previously 6 years ago temporarily, she did not want to go that route again if possible. PAST MEDICAL HISTORY: Chronic kidney disease, hypertension, now known CHF with an ejection fraction of 35%, rheumatoid arthritis, gastric ulcers, anemia of chronic disease, secondary hyperparathyroidism, and osteodystrophy. PAST SURGICAL HISTORY: Appendectomy, benign breast tumor excision, exploratory laparotomy with lysis of adhesions and repair of an enterotomy for small-bowel obstruction in 2010. FAMILY HISTORY: Reviewed and noncontributory. ALLERGIES: No known drug allergies. SOCIAL HISTORY: She is a former smoker. She quit smoking 6 years ago. No alcohol or illicit drug use. She is . REVIEW OF SYSTEMS: Ten systems reviewed and negative except as noted above. CURRENT MEDICATIONS: Aspirin, Toprol, Prilosec, Restoril, nystatin. PHYSICAL EXAMINATION: Vital Signs: Temperature 97 degrees, pulse 96, respirations 22, blood pressure 94/65, O2 saturation 93%. General: Frail female, who looks tired and weak, but in no acute distress. She does look her stated age. HEENT: Normocephalic, atraumatic. Extraocular muscles intact. Pupils equal, round, reactive to light. Sclerae anicteric. Mucous membranes are dry. Neck: Supple. No thyromegaly. CV: Regular rate and rhythm. Respiratory: Bilateral breath sounds. No work of breathing. GI: Soft, nontender, nondistended. No organomegaly or mass. Well-healed midline incision without hernia. Extremities: No clubbing or cyanosis. She does have 2+ lower extremity edema. Skin: Warm and dry. No rash. Musculoskeletal: Moves all extremities equally, but weakly. LABORATORY: White blood cell count 9.5, hemoglobin 12.1, hematocrit 37.7, platelet count 58,000. Electrolytes reviewed and notable for BUN of 104, creatinine 4.4. BNP greater than 35,000. IMAGING: A cardiac scan shows an ejection fraction of 30%. ASSESSMENT AND PLAN: A 68-year-old female with uremia and acute on chronic kidney disease with congestive heart failure, now approaching the need for dialysis. We will attempt a laparoscopic peritoneal dialysis catheter placement. However, she would not tolerate a laparotomy with lysis of adhesions to accomplish this, so if the pelvis is not accessible laparoscopically, then we will place a tunneled dialysis catheter at this time. I discussed the risks and benefits with her including bleeding, infection, injury to the bowel, nonfunctional catheter, misplacement of the catheter, DVT, and other imponderables. She understands and agrees to proceed. cc: Gurinder Alejandra MD
[2018-08-14 10:36] LABS: LYMPHS 20 % (21-51); MONO 8 % (1-9); SEGS 72 % (42-75)
[2018-08-14 10:37] LABS: ANISOCYTOSIS 1+; POIKILOCYTOSIS 2+
[2018-08-14 10:38] LABS: SCHISTOCYTES OCCASIONAL
--- NOTE | 2018-08-14 10:45 | PROGRESS NOTE ---
DATE: 08/14/2018 OVERNIGHT EVENTS: Overnight, no acute event. The patient had made a decision to undergo peritoneal dialysis for which she did receive peritoneal dialysis catheter today. SUBJECTIVE: The patient is still drowsy. She has had poor appetite. The patient's , who is a surrogate decision maker, is at bedside and he tells me that the patient has been eating a lot. We discussed about the patient's kidney dysfunction, heart dysfunction, and low platelet count and answered all of their questions. OBJECTIVE: Vital Signs: Currently, vitals reveal temperature of 97.7 degrees, pulse 96, blood pressure 94/65, saturating 93% on room air. General: On physical examination, the patient is drowsy and appears very weak, does not appear in any distress though. Oral cavity is moist. Lungs: Air entry bilaterally equal. No wheeze or rhonchi. Bilateral infrascapular crackles. Cardiovascular: Not tachycardic. S1, S2 normal. No murmur or gallop. Jugular venous distention is present. She also has bilateral lower extremity edema extending up to the larson. She has a urine catheter in place. Abdomen: Soft, nontender. Neurologic: She is alert, oriented x3. She has perception of light bilateral eyes, but no finger counting. LAB DATA: Today suggestive of no leukocytosis, stable hemoglobin, hematocrit, persistently dropping platelet count. Electrolytes suggestive of chronic kidney disease stage V, elevated bilirubin, mild transaminitis, mild elevation of LDH, elevated proBNP. IMAGING: MUGA scan suggestive off an ejection fraction of about 30 to 25 percent. ASSESSMENT AND PLAN: 1. Acute kidney injury on chronic kidney disease stage IV, now what appears to be leading to chronic kidney disease stage V and potentially ESRD requiring dialysis. The patient and family finally has opted for peritoneal dialysis for which she is to undergo peritoneal dialysis catheter placement on 08/14/2017. Surgery on board. Nephrology on board for future dialysis. 2. New onset acute systolic congestive heart failure with bilateral pedal edema and mild pleural effusions. Ejection fraction of 30 to 35 percent. This could be in the setting of hypertensive cardiomyopathy and/or cardiorenal syndrome. Continue aspirin and low-dose beta ann as tolerated. Cardiology has recommended conservative management for now. 3. Fatty liver with mild transaminitis. This could be in the setting of congestive hepatitis secondary to right heart failure, currently LFTs in acceptable range. 4. Persistent thrombocytopenia which is now worsened. Follow up with peripheral blood smear, LDH, and haptoglobin. Fatty liver could be contributing to it. However, I would follow up with any signs of hemolysis on peripheral smear. Hematology has been consulted considering persistently dropping platelet count and anticipation of invasive procedures in the future. 5. Anemia of chronic disease, currently in acceptable range. 6. Deep vein thrombosis prophylaxis. Continue sequential compression devices. Wide complex tachycardia with right bundle branch block and left anterior fascicular block , long-standing smoking history, hypertensive hypertrophic heart disease, emphysema could be contributing to it. Cardiology on board. Currently conservative management has been planned. 7. Oral thrush. Continue nystatin which is improving. 8. History of anxiety. Continue home temazepam. 9. Disposition: Patient remains inside the hospital pending dialysis catheter placement and initiation of dialysis. Plan of care was discussed with the patient and her at bedside. All of their questions have been answered. cc: Martin Nuno MD MTDD
--- NOTE | 2018-08-14 11:16 | NEPHROLOGY PROGRESS NOTE ---
DATE: 08/14/2018 SUBJECTIVE: Patient resting in bed. She is waiting to go to surgery later this afternoon for a peritoneal dialysis catheter. OBJECTIVE: Vital Signs: Temperature 97.7 degrees, pulse at 96, respiratory rate 22, blood pressure 94/65. Intake 240 mL; output 775 mL. General: Elderly female, resting in bed. Awake and alert. She is in no acute distress. HEENT: Normocephalic, atraumatic. KENDAL. Conjunctivae are pale. Oral mucosa is dry. Neck: Supple. There is no JVD. Cardiovascular : Regular rate and rhythm. There is no murmur or gallop appreciated. Pulmonary: She has equal excursion. She is clear bilaterally. She remains on room air. Abdomen: Soft, with positive bowel sounds. : Not inspected. Extremities: 1+ to 2+ lower extremity edema. Integumentary: Skin is warm and dry. LAB DATA: WBC of 9.4, hemoglobin 12.1. Sodium 138, potassium 4.2, CO2 21, creatinine 4.4, BUN 104. ASSESSMENT/PLAN: 1. Chronic kidney disease stage IV-V, now requiring dialysis. She is to have a peritoneal dialysis catheter placed if possible today, and then we will initiate urgent start with low volume transfers. We are hoping that if we can reduce waste load within the body, we will get some significant improvement in the patient's overall condition. There was some concern that because of prior abdominal surgery, if unable to perform a peritoneal dialysis catheter, she will have a vascular access placed. If that is the case, I will try to dialyze her later this afternoon for a very short treatment. 2. Fluid volume overload. See #1 for plan. 3. Electrolytes, acid-base balance, anemia. These have been stable. Continue to monitor. I related to [place] and Yaakov in the evening following her code in the PACU. She was not able to have a PD catheter placed. She became critically ill after induction. We will assess on 08/15 whether she can tolerate SLED. rg Dictated by KALEB Osuna for Hossein Alvarez MD Data reviewed, discussed with Patience Campa on 08/14/28. I agree with the above assessment and plan of care. rg cc: Hossein Alvarez MD [facility]
[2018-08-14 12:01] VITALS: BP 91/70
[2018-08-14] MEDS ORDERED: KEFZOL 1 GM/D5W 1 GM/50 ML IVPB IV ONE (14:00)
--- NOTE | 2018-08-14 14:59 | HEMO/ONC CONSULTATION ---
DATE: 08/14/2018 REASON FOR CONSULTATION: The patient is in consultation at the request of Dr. Nuno for thrombocytopenia. HISTORY OF PRESENT ILLNESS: Ms. Aaron is a 68-year-old woman who has a longstanding history of chronic kidney disease. Per her , she had a severe upper respiratory infection and a cold approximately 3 weeks ago, and never really got much better. She stopped eating. She did have 12 hours of diarrhea. She was not on any antibiotics during that time. She eventually got so weak that the was able to convince her to come to be evaluated. She was found on admission to be in acute renal failure and was admitted for further evaluation and consideration of dialysis. PAST MEDICAL HISTORY: Significant for stage 4 chronic kidney disease, hypertension, rheumatoid arthritis, anemia of chronic disease, peptic ulcer disease, secondary hyperparathyroidism, UTI with extended spectrum beta lactamase resistance. PAST SURGICAL HISTORY: Dialysis catheter placement and removal, appendectomy, benign breast tumor excision. SOCIAL HISTORY: The patient quit smoking 7 years ago. Prior 2 pack per day tobacco use. No alcohol or illicit drugs. She lives with her . FAMILY MEDICAL HISTORY: No family history of blood disorders. ALLERGIES: Reviewed per the chart. MEDICATIONS: Reviewed per the chart. REVIEW OF SYSTEMS: Pertinent positives and negatives as per HPI. All other review of systems are negative. PHYSICAL EXAMINATION: Vital Signs: Temperature 97.4, pulse 96, respiratory rate 23, blood pressure 91/70, O2 saturation 94% on room air. General: This is a thin, chronically ill- appearing, woman who is in no acute distress. She has 2 family members at the bedside. Eyes: Sclerae anicteric. Cardiovascular: Regular rate and rhythm. Normal S1 and S2. No murmurs, rubs, or gallops. Pulmonary: Lungs clear to auscultation bilaterally without wheezes, rales, or rhonchi. Abdomen: Soft, nontender, nondistended with normoactive bowel sounds. Extremities: 1+ bilateral pretibial, nonpitting edema. Neurological: The patient is sleepy, but arouses to voice and touch, answers questions appropriately, and is oriented x3. The rest of examination is unremarkable. LABORATORY DATA: On 08/10/2018, white count 7.91, hemoglobin 12.6, platelet count 99,000. On the day of consultation, white count 9.46, hemoglobin 12.1, platelet count 58,000 with 72 segs, 20 lymphocytes, 8 monos. Mean platelet volume is 14. Iron saturation 19%. Peripheral blood smear shows occasional schistocytes. Creatinine is 4.4 with a BUN of 104. INR is 1.0. Total bilirubin 1.35. DALIA negative. ANCA negative. Complement normal. Hepatitis panel negative. Rheumatoid factor 34, alkaline phosphatase 85, LDH 947. B12, folate, and thyroid function tests normal. ASSESSMENT AND PLAN: 1. Thrombocytopenia: The patient appears to have some peripheral consumption of her platelets. Her mean platelet volume is elevated, signifying adequate marrow function. She has no evidence of bleeding. To be on the safe side, I will check heparin antibodies, although I do not see any clear evidence that she has been exposed to heparin during her hospitalization. I am somewhat concerned about a thrombotic microangiopathic disease process, although her lack of anemia makes that less likely. I will check homocystine and MMA levels, Avila and [id number] levels. I have discussed her case with Dr. Alvarez and he does not feel her renal function is reversible at this point, so we will proceed conservatively and work her up with peripheral blood at this time. I would recommend transfusion of platelets if platelet count is less than 22,000 or if she develops significant bleeding. 2. Renal failure, acute on chronic: She is scheduled for dialysis catheter placement and to initiate dialysis later today. Continue to monitor under the care of Dr. Alvarez. 3. Evidence of hemolysis on blood smear with schistocytes: I will send Avila test and [id number] levels at this time. I will follow up on those results when they become available. Thank you for the consultation and the opportunity to participate in the care of the unfortunate, but very pleasant woman. I will follow along and leave further recommendations as indicated based on results of initial testing. cc: MD Martin Umana MD Reginald D. Gladish, MD
[2018-08-14] MEDS ORDERED: DIPRIVAN 1% ONE (15:37)
[2018-08-14] MEDS ORDERED: XYLOCAINE-MPF 2% ONE (15:40)
[2018-08-14] MEDS ORDERED: ROBINUL ONE (15:40)
[2018-08-14] MEDS ORDERED: QUELICIN (DOSE) ONE (15:40)
[2018-08-14] MEDS ORDERED: AMIDATE ONE (16:06)
[2018-08-14] MEDS ORDERED: HEPARIN ONE (16:07)
[2018-08-14] MEDS ORDERED: FENTANYL ONE (16:07)
[2018-08-14] MEDS ORDERED: SENSORCAINE-MPF 0.5%/EPI 1:200,000 ONE (16:08)
[2018-08-14] MEDS ORDERED: NS 500 ML ONE (16:08)
[2018-08-14] MEDS ORDERED: KEFZOL 1 GM/D5W 1 GM/50 ML IVPB ONE (16:08)
[2018-08-14] MEDS ORDERED: NEO-SYNEPHRINE ONE (16:33)
[2018-08-14] MEDS ORDERED: CALCIUM CHLORIDE SYRINGE ONE (16:34)
[2018-08-14] MEDS ORDERED: NS 250 ML ONE (16:48)
[2018-08-14] MEDS ORDERED: NS 1,000 ML ONE ×3 (17:10→18:02)
[2018-08-14 17:21] LABS: ALLEN TEST NO; BE -11.9 mmoll (-3.0-3.0); HCO3-(ACT) 13.9 mmoll (20.0-26.0); METHB 1.4 % (0.0-1.5); PCO2(98.6) 48 mmHg (35-45); SAMPLE BLOOD; SAO2 24.5 % (95.0-100.0); THB 11.9 g/dL (11.5-17.4)
[2018-08-14 17:24] LABS: BLOOD TYPE VENOUS; pH(98.6) 7.15 (7.35-7.45)
[2018-08-14 17:25] LABS: MODALITY RESUSC BAG; O2HB 23.7 % (95.0-99.0); PO2(98.6) 22 mmHg (60-100)
[2018-08-14 17:43] LABS: HEMATOCRIT 43.3 % (37.0-47.0); HEMOGLOBIN 13.9 g/dL (12.0-16.0); MCH 28.2 PG (27-31); MCHC 32.1 g/dL (33-37); MCV 87.8 FL (81-99); RBC 4.93 XMIL (4.2-5.4); RDW 19.5 % (11.5-14.5); WBC 12.05 X1000 (4.8-10.8)
[2018-08-14 17:54] LABS: CALCIUM 11.1 mg/dL (8.8-10.2); CREATININE 4.6 mg/dL (0.5-0.9); POTASSIUM 5.1 mmol/L (3.5-5.1)
[2018-08-14] MEDS ORDERED: LEVOPHED 8 MG in D5 1/2 NS 250 ML IV SCH ×2 (18:00→19:15)
[2018-08-14] MEDS ORDERED: DOPAMINE 800 MG/D5W 800 MG/500 ML IV.SOLN IV ONE (18:08)
[2018-08-14 18:23] LABS: ALLEN TEST NO; BE -16.4 mmoll (-3.0-3.0); BLOOD TYPE ARTERIAL; METHB 0.9 % (0.0-1.5); O2(CT) 6.5 mL/dL (15.0-23.0); SAMPLE BLOOD; SAO2 33.1 % (95.0-100.0); SRATE 15 BPM; THB 14.3 g/dL (11.5-17.4); TVOL 400 mL
[2018-08-14 18:26] LABS: pH(98.6) 6.92 (7.35-7.45)
[2018-08-14 18:27] LABS: PCO2(98.6) 87 mmHg (35-45); PO2(98.6) 31 mmHg (60-100)
[2018-08-14 18:28] LABS: HCO3-(ACT) 10.3 mmoll (20.0-26.0)
[2018-08-14 18:29] LABS: MODALITY VENTILATOR; O2HB 32.2 % (95.0-99.0)
[2018-08-14 18:59] LABS: ALB/GLOB RATIO 1.5; ALBUMIN 2.7 g/dL (3.5-5.0); BASO# 0.04 X1000 (0.0-0.2); BASO% 0.4 % (0.0-0.8); CREATININE 4.1 mg/dL (0.5-0.9); HEMATOCRIT 44.4 % (37.0-47.0); HEMOGLOBIN 13.7 g/dL (12.0-16.0); IMM GRAN# 0.12 X1000 (0.0-0.04); IMM GRAN% 1.2 % (0.0-0.5); LYMPH# 2.22 X1000 (1.2-3.4); LYMPH% 21.3 % (20.5-51.1); MCHC 30.9 g/dL (33-37); MCV 90.6 FL (81-99); MONO# 0.43 X1000 (0.11-0.59); MONO% 4.1 % (1.7-9.3); NEUT# 7.62 X1000 (1.4-6.5); PLT 42 X1000 (130-400); RDW 19.8 % (11.5-14.5); TOTAL BILIRUBIN 1.61 mg/dL (0.20-1.00); TOTAL PROTEIN 4.5 g/dL (6.3-8.3); WBC 10.43 X1000 (4.8-10.8)
[2018-08-14] MEDS ORDERED: ATROPINE SYRINGE IV ONE (19:00)
[2018-08-14] MEDS ORDERED: CALCIUM CHLORIDE SYRINGE IV ONE (19:00)
[2018-08-14] MEDS ORDERED: SODIUM BICARBONATE 8.4% IV ONE (19:00)
[2018-08-14] MEDS ORDERED: LIDOCAINE SYRINGE IV ONE (19:00)
[2018-08-14] MEDS ORDERED: EPINEPHRINE SYRINGE IV ONE (19:00)
[2018-08-14] MEDS ORDERED: CORDARONE IV ONE (19:00)
[2018-08-14 19:02] LABS: CALCIUM 13.6 mg/dL (8.8-10.2)
[2018-08-14] MEDS ORDERED: DOPAMINE 800 MG/D5W 800 MG/500 ML IV.SOLN IV SCH (19:15)
--- NOTE | 2018-08-14 19:48 | PROGRESS NOTE ---
DATE: 08/14/2018 SUBJECTIVE: Patient suffered cardiopulmonary arrest and she is having initial measures made to pursue dialysis catheter placement, peritoneal dialysis catheter placement. After receiving sedatives she became hypotensive and suffered cardiopulmonary arrest. Extensive resuscitative efforts were made. A hemodialysis catheter was placed to serve as central line. After extensive resuscitative efforts, she regained a pulse and had a stable blood pressure on Levophed plus dopamine. The patient is unresponsive. OBJECTIVE: Vital Signs: Blood pressure 110/60, heart rate 48, oxygen saturation 88% on ventilator with FiO2 of 100%. Neck: Jugular distention is evident. Chest: Auscultation of chest reveals scattered rhonchi and coarse breath sounds anteriorly. Cardiac: Exam was reveals a regular rate and rhythm without appreciable murmur or gallop. Extremities: Are cool and with mild edema. LABORATORY DATA: Most recently includes white blood cell count 12.15, hematocrit 43.3, hemoglobin 13.9, platelet count 64,000. Sodium 134, potassium 5.1, chloride 88, carbon dioxide 20, BUN 107, creatinine 4.6, calcium 11.1, magnesium 2.2. IMPRESSION: 1. Status post cardiopulmonary arrest. Patient is on significant pressors and clinically appears to be hypoperfusing. Concern regarding how long she will maintain her present hemodynamics. Prognosis appears to be poor. This was discussed with the family. 2. Acute on chronic kidney disease to the point of requiring dialysis. 3. Acute systolic heart failure which has been predominantly right-sided in nature. Left ventricular ejection fraction approximately 35%. 4. Hypertensive cardiovascular disease. 5. Rheumatoid arthritis. RECOMMENDATIONS: 1. Continue supportive care. 2. Continue intravenous pressors to support blood pressure. 3. The patient's poor prognosis discussed with her and family. They would like for us to continue to do all we can at this point. cc: Moncho Elizabeth MD
--- NOTE | 2018-08-14 19:59 | PROGRESS NOTE ---
DATE: 08/14/2018 ADDENDUM: I was informed by 1 of the providers that patient was coding in PACU to which I responded immediately. When I arrived to the PACU patient receiving chest compression. I was informed by the coding team and surgeon doctor at bedside that when patient was brought down for the peritoneal dialysis catheter she had received etomidate but her blood pressure was very low and her pulse was 30 so she never received peritoneal dialysis catheter instead a Vas-Cath was placed in right groin after which she was brought back to the PACU. When she came back to the PACU her heart rate dropped, she became bradycardic and eventually went into ventricular fibrillation, ventricular tachycardia arrest following which chest compressions were initiated. By the time I arrived she had received 2 rounds of shock for ventricular tachycardia, at least couple of doses of epinephrine and was receiving chest compressions. Advance airway intubation was already secured, I took over from there and I started resuscitating patient according to ACLS protocol. The entire code lasted for about 25 minutes during which at least more than 3 rounds of epinephrine were given, more than 2 g of calcium chloride were given, an ampule of bicarbonate was given. She received at least 2 cardiac resynchronizations for ventricular tachycardia. She also received a dose of 300 mg of amiodarone and 150 mg of amiodarone during the code. After about 25 minutes of resuscitation she did get her pulse back. During this entire episode she continued to receive intravenous fluids and intravenous phenylephrine which was available at that time. After pulse was secured her drip was changed to norepinephrine and dopamine. Her blood pressure readings after the return of spontaneous circulation was more than 100 systolic and more than 60 diastolic on most occasions. The EKG had detected complete heart block with ventricular escape rhythm. Cardiology and surgery team was at bedside. Patient was started on ventilator, the initial ABG I was informed had pH of less than 7 so I increased the ventilator parameter keeping FiO2 100% to respiratory rate of 30. Initial BMP obtained had a potassium of 5.1 and a bicarbonate of 20. An ICU bed arrangement was requested. I went to patient's family and patient's who is surrogate decision maker. I informed him about patient's critical condition and course of events and the fact that he had resuscitated her for 25 minutes the chances of meaningful neurological recovery were significantly reduced. I also informed the family member that the potential contributing factors to patient's cardiac arrest could be progression of kidney failure, progression of cardiac failure and/or the medication she might have received before the peritoneal dialysis procedure, catheter placement procedure. I also informed that considering her critical condition it is not impossible for her to go into cardiac arrest again. At that point patient's had explained that he would like to keep the patient full code and would like us to resuscitate her if need arises. cc: Martin Nuno MD
--- NOTE | 2018-08-14 21:42 | PROGRESS NOTE ---
DATE: 08/14/2018 ADDENDUM: I came back and talked with the patient's family members about her critical condition. The patient had another code blue while she was in the ICU. The entire code lasted at least 10 to 15 minutes requiring five epinephrine which were given before I could reach and attend the code. During my evaluation, the patient went into ventricular tachycardia, and she received one time 200 joule shock following which she had return of spontaneous regulation. I again went to the patient's family members and informed them of her condition. I explained to them that she might code again, and our course of care. The patient's family and decision maker wanted all possible measures to be taken for the patient which I conveyed to the nursing team at bedside. The patient will be a full code, and I will continue to give the patient pressor support in the form of Norepinephrine and dopamine. The patient had also received ampules of bicarbonate while she was en route to the ICU for acute hypercarbic respiratory failure. The patient also remained intubated for acute hypoxic respiratory failure I will repeat another ABG, CBC and CMP and will potentially start the patient on a bicarbonate drip. The plan of care was discussed with the patient's nurse at the bedside. >2 hours of critical care time was spent in taking care of this patient. I kept patient's family including her who is a surrogate decision maker informed of the course of events. All of their questions were answered satisfactorily. cc: Martin Nuno MD MTDD
--- NOTE | 2018-08-14 23:10 | OPERATIVE NOTE ---
PROCEDURE DATE: 08/14/2018 PREOPERATIVE DIAGNOSIS: 1. Chronic kidney disease. 2. Volume overload. 3. Congestive heart failure. POSTOP DIAGNOSIS: 1. Chronic kidney disease. 2. Volume overload. 3. Congestive heart failure. PROCEDURE: Insertion of dialysis vascular catheter. SURGEON: Gurinder Alejandra MD. ANESTHESIA: General. ESTIMATED BLOOD LOSS: Scant. COMPLICATIONS: None apparent. FINDINGS: She was originally brought to the OR with intention of placing a laparoscopic peritoneal dialysis catheter. However, during induction of anesthesia she began to look more frail and critically ill. She was hypotensive with a systolic blood pressure that was not reading. She was bradycardic and hypoxic. I therefore aborted any attempts at a peritoneal dialysis catheter placement and went ahead and urgently placed a right femoral Vas-Cath. She was then transferred to the PACU in critical condition. TECHNIQUE: She was brought to the operating room placed supine on the table. General anesthesia was induced. Given the decline in her vital signs, we never made an incision on the abdomen, rather I prepped the right groin, palpated the femoral pulse and accessed the femoral vein medial to the pulse with a needle. Dark nonpulsatile blood was obtained. The wire passed through the needle easily. The track was dilated and a 20 cm dialysis type catheter was passed over the wire into the vein via the Seldinger technique. It was anchored to the skin with nylon suture. A sterile dressing was applied. She was transferred to the recovery room in critical condition where she subsequently lost her pulse and a code was begun. For full details, please see further notes as per the hospitalist. cc: Gurinder Alejandra MD
--- NOTE | 2018-08-15 12:21 | PROGRESS NOTE ---
DATE: 08/15/2018 Ms. Aaron is a 68-year-old female who was admitted on 08/10/2018 for fluid volume overload with acute on chronic renal failure. During her admission, she is currently being treated for acute kidney injury on chronic kidney disease stage 5, which was now going to be requiring dialysis. She was also being treated for new onset acute systolic congestive heart failure and persistent thrombocytopenia. The patient did have worsening kidney function. She was initially scheduled for surgery for peritoneal dialysis port placement, though during the induction of surgery, the patient did become more unstable. They ultimately were not able to complete this, though they were able to place a right Vas-Cath. Unfortunately, the patient did code in the PACU and was noted to have shockable rhythms of ventricular fibrillation and ventricular tachycardia. She did have ROSC and was transferred to the ICU, though subsequently did code a second time at approximately 1928 for which she was noted to be bradycardic which did ultimately turn into asystole, though during this time, she did have a period of ventricular tachycardia which was defibrillated. She did have return of spontaneous circulation at 194. Dr. Nuno did speak at length with the patient's family about her condition and prognosis, though at this time, they did wish for her to remain a full code. The patient did continue to be critically ill. She was receiving maximum pressor medication doses of Levophed and Dopamine. The patient did continue to be hypotensive and bradycardic. AT 2036 she did begin to have a wide complex bradycardia and then asystole. ACLS protocol was initiated. Medications of epinephrine and sodium bicarbonate were administered. Dr. Sanchez, the ER physician, did respond to the code as well, though unfortunately despite all resuscitative measures, the patient did succumb to her illness. Dr. Sanchez did end all resuscitative measures at 2047. There was no palpable pulse present. She was asystole on the monitor. Dr. Sanchez did perform a cardiac ultrasound at bedside and did note no heart motion present. There were no auscultated heart sounds, either. Time of was 2047. Please see code blue documentations and nurses notes for further detailed information. Dictated by KALEB Dinh for Domingo Pickett MD cc: Domingo Pickett MD [facility]
--- NOTE | 2018-08-17 08:41 | EKG Report ---
Test Performed on : 08/14/2018 6:09:12 PM Test Reason : EHG Blood Pressure : / mmHG Vent. Rate : 047 BPM Atrial Rate : 078 BPM P-R Int : 000 ms QRS Dur : 200 ms QT Int : 414 ms P-R-T Axes : 264 077 260 degrees QTc Int : 366 ms Sinus rhythm. with complete heart block. Left bundle branch block pattern Abnormal ECG When compared with ECG of 12-AUG-2018 10:04, complete heart block is new Vent. rate has decreased BY 87 BPM Confirmed by Humza MUÑIZ, William Molina ([id number]) on 08/17/2018 1:05:23 PM
--- NOTE | 2018-08-20 22:19 | DISCHARGE SUMMARY ---
ADMISSION DATE: 08/10/2018 DISCHARGE DATE: 08/14/2018 DATE OF : 08/14/2018 TIMING OF : Approximately 2100. CAUSE OF : Congestive heart failure. CONTRIBUTING FACTORS: Acute kidney injury on chronic kidney disease. CONSULTATIONS DURING HOSPITALIZATION: Nephrology, Hossein Alvarez MD. Cardiology, Moncho Elizabeth MD. HOSPITAL COURSE SUMMARY: Ms Aaron is a 68-year-old lady who had initially presented for acute kidney injury on chronic kidney disease, stage 4, and discussion about initiating hemodialysis was started with the family. Family was provided various options. The patient was legally blind and wanted more information. After providing multiple sessions of information, the patient had decided to undergo peritoneal dialysis. During hospital admission, however, she had not developed hyperkalemia or severe metabolic acidosis. She was found to have congestive heart failure with ejection fraction of 25% to 30%, which was a change from her echocardiogram about 6 or 7 months ago. It was thought to be secondary to cardiorenal syndrome or possibly other etiologies, but considering her end-stage renal disease, it was unlikely that she would respond to diuretics and so dialysis was thought to be a definitive treatment. While patient went to get peritoneal dialysis catheter placed in the OR, she was found to be very hypotensive so the procedure was aborted and instead a Vas-Cath was placed in the right groin. The patient had lost her pulse, had become bradycardic, and went into PEA or ventricular tachycardia arrest, and cardiopulmonary resuscitation was initiated. A separate note for cardiopulmonary resuscitation has been dictated. After cardiopulmonary resuscitation of about 25 minutes, pulse was obtained, and patient was transferred to ICU. However, patient kept on going into ventricular tachycardia arrest in the ICU. Family was kept informed about her course of events in person, and they had requested to keep the patient full code. However, ultimately the patient had succumbed. DISCHARGE DIAGNOSES: 1. Acute systolic congestive heart failure. 2. Acute kidney injury on chronic kidney disease. 3. Fatty liver with mild transaminitis. 4. Thrombocytopenia. 5. Anemia of chronic disease. 6. Oral thrush. OTHER DIAGNOSES: 1. Chronic kidney disease, stage 4. 2. [*]urinary tract infection (UTI) history. 3. History of gastric ulcers. 4. History of hypertension. COORDINATION TIME: More than 30 minutes were spent in preparing discharge summary for the patient. cc: Martin Nuno MD
[2018-08-21 07:47] LABS: I-STAT BE -9 mmoll (-2-3); I-STAT GLUCOSE 68 mg/dL (70-105); I-STAT HEMOGLOBIN 13.3 g/dL (11.5-17.5); I-STAT K 4.2 mmoll (3.5-4.9); I-STAT TCO2 21 mmoll (23-27); I-STAT pH 7.173 (7.350-7.450)
== END 2018-08-14 20:48 | disposition home or self-care (01) | DRG 291 ==
LOC: ED 14:31 → EDIPHOLD 18:26 → SUATTDRO 18:26 → 4N 20:31 → 3S 08-11 18:25 → ICU 08-14 19:38 → UNDODISIN 08-14 20:48 → DIRADM 08-14 23:28
PROVIDERS: ATTEND Internal Medicine
CPT/HCPCS: 51702; 71020; 71046; 76700; 78472; 80048; 80053; 80061; 80074; 81001; 82330; 82570; 82607; 82728; 82746; 82805; 82947; 83010; 83090; 83516; 83540; 83550; 83615; 83735; 83880; 83921; 84132; 84156; 84295; 84300; 84443; 85014; 85018; 85025; 85027; 85379; 85610; 85651; 86022; 86038; 86039; 86140; 86162; 86885; 87205; 92950; 93005; 93010; 93306; 93880; 93976; 94002; 94003; 94761; 96374; 99285; 99999; A9270; A9512; C8929; J0171; J0282; J0330; J0461; J0690; J1644; J1940; J2370; J3010; J7030; J7040; J7050; P9047; Q9957